=== PATIENT | female | born 1950 ===

== ENCOUNTER → 2017-04-27 | Outpatient (CLI) | payer OTHER, BC | PROVIDERS: ATTEND Internal Medicine | DX: R13.10 Dysphagia, unspecified (principal); G31.83 Neurocognitive disorder with Lewy bodies; F02.80 Dementia in other diseases classified elsewhere, unspecified severity, without behavioral disturbance, psychotic disturbance, mood disturbance, and anxiety | CPT/HCPCS: 74220; 74230; 92611; G8996; G8997; G8998 ==

== ENCOUNTER → 2017-05-05 | Outpatient (CLI) | payer OTHER, BC | LOC: BRMIMAGING 09:32 | PROVIDERS: ATTEND Internal Medicine | DX: Z12.31 Encounter for screening mammogram for malignant neoplasm of breast (principal); Z80.3 Family history of malignant neoplasm of breast; Z13.820 Encounter for screening for osteoporosis; M81.0 Age-related osteoporosis without current pathological fracture ==